=== PATIENT | female | born 1990 | race Caucasian/White ===

== ENCOUNTER 2017-01-02 22:56 | Emergency (ER) | payer OTHER ==
[2017-01-02 23:02] VITALS: TEMP 97.9; BMI 23.6
--- NOTE | 2017-01-02 23:34 | PDOC ---
History of Present Illness <Sudha Oneill - Last Filed: 01/03/17 00:42> <Ifrah Livingston - Last Filed: 01/09/17 00:42> - General Chief Complaint: Chest Pain Stated Complaint: CHEST PAIN Time Seen by Provider: 01/02/17 23:07 - History of Present Illness Initial Comments: 01/02/17 23:56 Patient is a 26 year old female with significant medical hx of anxiety who is presenting to the ED with several hours of constant chest pain and a few days of nasal congestion. The patient reports she was out to eat with her friend when she had a sudden onset of constant, non-radiating, centralized chest pain around 9:00 PM. She states that her chest pain started out as 8/10 in severity but has dropped to 6/10 since being in the ED. She characterizes her pain as a "pressure" that feels "heavy". It is not associated with any shortness of breath , diaphoresis, nausea, vomiting, fevers, chills, or headache. She also denies any belching or burning sensation. 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 She recently made a 12 hour car ride from [place] to come home to visit within the past week. The patient also suspects having some allergies from the dog. Surgical Hx: none Allergies: NKDA LNMP: 12/29/16 Social Hx: Denies tobacco use or alcohol use (Sudha Oneill) Past History <Sudha Oneill - Last Filed: 01/03/17 00:42> - Past Medical History Other medical history: anxiety - Immunization History Immunization Up to Date: Yes - Psycho/Social/Smoking Cessation Hx Suicidal Ideation: No Smoking History: Never smoked Information on smoking cessation initiated: No Hx Alcohol Use: No Drug/Substance Use Hx: No <Ifrah Livingston - Last Filed: 01/09/17 00:42> - Past Medical History Allergies/Adverse Reactions: Allergies Allergy/AdvReac Type Severity Reaction Status Date / Time No Known Allergies Allergy Verified 01/02/17 22:59 Home Medications: Ambulatory Orders Alprazolam [Xanax] 0.25 mg PO Q12H PRN 01/03/17 Review of Systems <Sudha Oneill - Last Filed: 01/03/17 00:42> <Ifrah Livingstonh - Last Filed: 01/09/17 00:42> - Review of Systems Comments:: 01/03/17 00:17 CONSTITUTIONAL: Absent: fever, chills, diaphoresis, generalized weakness, malaise, loss of appetite HEENT: Present: nasal congestion Absent: rhinorrhea, throat pain, throat swelling, difficulty swallowing, mouth swelling, ear pain, eye pain, visual changes CARDIOVASCULAR: Present: chest pain Absent: syncope, palpitations, irregular heart rate, lightheadedness, peripheral edema RESPIRATORY: Absent: cough, shortness of breath, dyspnea with exertion, orthopnea, wheezing, stridor, hemoptysis GASTROINTESTINAL: Absent: abdominal pain, abdominal distension, nausea, vomiting, diarrhea, constipation, melena, hematochezia GENITOURINARY: Absent: dysuria, frequency, urgency, hesitancy, hematuria, flank pain, genital pain MUSCULOSKELETAL: Absent: myalgia, arthralgia, joint swelling SKIN: Absent: rash, itching, pallor HEMATOLOGIC/IMMUNOLOGIC: Absent: easy bleeding, easy bruising, lymphadenopathy, frequent infections ENDOCRINE: Absent: unexplained weight gain, unexplained weight loss, heat intolerance, cold intolerance NEUROLOGIC: Absent: headache, focal weakness or paresthesia, dizziness, unsteady gait, seizure, mental status changes, bladder or bowel incontinence. PSYCHIATRIC: Absent: anxiety, depression, suicidal or homicidal ideation, hallucinations (Sudha Oneill) *Physical Exam <Sudha Oneill - Last Filed: 01/03/17 00:42> <Ifrah Livingston - Last Filed: 01/09/17 00:42> - Vital Signs Last Vital Signs Temp Pulse Resp BP Pulse Ox 97.9 F 66 16 109/66 98 01/02/17 22:59 01/03/17 02:41 01/03/17 02:41 01/03/17 02:41 01/03/17 02:41 - Physical Exam Comments: 01/03/17 00:17 GENERAL: Well developed, well nourished. Awake and alert. No acute distress. HEENT: Normocephalic, atraumatic. PERRLA, EOMI. No conjunctival pallor. Sclera are non- icteric. Moist mucous membranes. Oropharynx is clear. NECK: Supple. Full ROM. No JVD. Carotid pulses 2+ and symmetric, without bruits. No thyromegaly. No lymphadenopathy. CARDIOVASCULAR: Regular rate and rhythm. No murmurs, rubs, or gallops. Distal pulses are 2+ and symmetric. PULMONARY: No evidence of respiratory distress. Lungs clear to auscultation bilaterally. No wheezing, rales or rhonchi. ABDOMINAL: Soft. Non-tender. Non-distended. No rebound or guarding. No organomegaly. Normoactive bowel sounds. MUSCULOSKELETAL: Normal range of motion at all joints. No bony deformities or tenderness. No CVA tenderness. EXTREMITIES: No cyanosis. No clubbing. No edema. No calf tenderness. SKIN: Warm and dry. Normal capillary refill. No rashes. No jaundice. NEUROLOGICAL: Alert, awake, appropriate. Cranial nerves 2-12 intact. Normal speech. Gait is normal without ataxia. PSYCHIATRIC: Cooperative. Good eye contact. Appropriate mood and affect. (Sudha Oneill) Heart Score/ECG Review <Sudha Oneill - Last Filed: 01/03/17 00:42> <Ifrah Livingston - Last Filed: 01/09/17 00:42> #1 01/03/17 00:18 Normal sinus rhythm at 74 bpm Normal ECG (Sudha Oneill) ED Treatment Course - LABORATORY CBC & Chemistry Diagram: 01/02/17 23:42 01/02/17 23:45 <Sudha Oneill - Last Filed: 01/03/17 00:42> - LABORATORY CBC & Chemistry Diagram: 01/02/17 23:42 01/02/17 23:45 <Ifrah Livingston - Last Filed: 01/09/17 00:42> - ADDITIONAL ORDERS Additional order review: 01/02/17 23:42 RBC 3.88 MCV 81.2 MCHC 32.6 RDW 14.0 MPV 8.7 Neutrophils % 66.7 Lymphocytes % 19.9 Monocytes % 10.2 Eosinophils % 2.5 Basophils % 0.7 - RADIOLOGY Radiology Studies Ordered: Category Date Time Status CHEST CT WITH CONTRAST [CT] Stat CT Scan 01/03/17 00:40 Completed - Medications Given in the ED: ED Medications Discontinued Medications Generic Name Dose Route Start Last Admin Trade Name Freq PRN Reason Stop Dose Admin Al Hydroxide/Mg Hydroxide 30 ml 01/02/17 23:36 01/02/17 23:42 Mylanta Oral Suspension - PO 01/02/17 23:37 30 ml ONCE ONE Administration Aspirin 81 mg 01/02/17 23:36 01/02/17 23:42 Asa - PO 01/02/17 23:37 81 mg ONCE ONE Administration *DC/Admit/Observation/Transfer <Sudha Oneill - Last Filed: 01/03/17 00:42> <Ifrah Livingston - Last Filed: 01/09/17 00:42> Diagnosis at time of Disposition: Chest pain - Discharge Dispostion Disposition: HOME Condition at time of disposition: Stable - Referrals Referrals: Jenni Moran [Primary Care Provider] - - Patient Instructions Printed Discharge Instructions: DI for Chest Pain - Attestations Scribe Attestion: 01/03/17 00:18 Documentation prepared by Sudha Oneill, acting as medical laboratory technical officer for Ifrah Livingston MD. (Sudha Oneill)
[2017-01-02] MEDS ORDERED: MAG HYDROX/AL HYDROX/SIMETH 30 ML UNIT-DOSE CUP PO ONE (23:36)
[2017-01-02] MEDS ORDERED: ASPIRIN 81 MG CHEWABLE TABLETS PO ONE (23:36)
[2017-01-02] MEDS ORDERED: MAG HYDROX/AL HYDROX/SIMETH 30 ML UNIT-DOSE CUP ONE (23:40)
[2017-01-02] MEDS ORDERED: ASPIRIN 81 MG CHEWABLE TABLETS ONE (23:40)
[2017-01-02 23:56] LABS: BASOPHIL 0.7 % (0-2.0); EOSINOPHIL 2.5 % (0-4.5); MCH 26.5 pg (25.7-33.7); MCHC 32.6 g/dl (32.0-36.0); MEAN CELL VOLUME 81.2 fl (80-96); MEAN PLT VOLUME 8.7 fl (7.5-11.1); NEUTROPHILS 66.7 % (42.8-82.8); PLATELET COUNT 305 K/MM3 (134-434); WHITE BLOOD COUNT 9.4 K/mm3 (4.0-10.0)
[2017-01-03 00:21] LABS: INR 1.1 (0.82-1.09); PROTHROMBIN TIME (PATIENT) 12.1 SEC (9.98-11.88)
[2017-01-03 00:23] LABS: ALBUMIN 3.4 g/dl (3.4-5.0); ANION GAP 12 (8-16); BILIRUBIN,TOTAL 0.3 mg/dL (0.2-1.0); CALCIUM 8.2 mg/dL (8.5-10.1); CO2 23 mmol/L (21-32); CREATININE 0.7 mg/dL (0.55-1.02); GLUCOSE,RANDOM 110 mg/dL (74-106); SGOT/AST 12 U/L (15-37); SGPT/ALT 14 U/L (12-78); TOT PROT 6.6 g/dl (6.4-8.2)
[2017-01-03 00:26] LABS: ALK PHOS 90 U/L (45-117); TROPONIN I < 0.02 ng/ml (0.00-0.05)
[2017-01-03 02:41] VITALS: BP 109/66; PULSE 66
--- NOTE | 2017-01-03 02:52 | PDOC ---
*Physical Exam - Vital Signs Last Vital Signs Temp Pulse Resp BP Pulse Ox 97.9 F 66 16 109/66 98 01/02/17 22:59 01/03/17 02:41 01/03/17 02:41 01/03/17 02:41 01/03/17 02:41 ED Treatment Course - LABORATORY CBC & Chemistry Diagram: 01/02/17 23:42 01/02/17 23:45 - ADDITIONAL ORDERS Additional order review: Laboratory Results 01/02/17 01/02/17 01/02/17 23:45 23:45 23:42 INR 1.10 D-Dimer 616 H Sodium 143 Potassium 3.7 Chloride 108 H Carbon Dioxide 23 Anion Gap 12 BUN 7 Creatinine 0.7 Creat Clearance w eGFR > 60 Random Glucose 110 H Calcium 8.2 L Magnesium 2.0 Total Bilirubin 0.3 AST 12 L ALT 14 Alkaline Phosphatase 90 Creatine Kinase 80 Troponin I < 0.02 Total Protein 6.6 Albumin 3.4 Serum , Qual Negative 01/02/17 23:42 RBC 3.88 MCV 81.2 MCHC 32.6 RDW 14.0 MPV 8.7 Neutrophils % 66.7 Lymphocytes % 19.9 Monocytes % 10.2 Eosinophils % 2.5 Basophils % 0.7 - Medications Given in the ED: ED Medications Discontinued Medications Generic Name Dose Route Start Last Admin Trade Name Gersonq PRN Reason Stop Dose Admin Al Hydroxide/Mg Hydroxide 30 ml 01/02/17 23:36 01/02/17 23:42 Mylanta Oral Suspension - PO 01/02/17 23:37 30 ml ONCE ONE Administration Aspirin 81 mg 01/02/17 23:36 01/02/17 23:42 Asa - PO 01/02/17 23:37 81 mg ONCE ONE Administration Medical Decision Making - Medical Decision Making 01/03/17 03:03 Pt endorsed to me by Dr. Livingston at shift change. Awaiting CTA chest to r/o PE. CTA chest negative. Patient stable for DC home. *DC/Admit/Observation/Transfer Diagnosis at time of Disposition: Chest pain Qualifiers: Chest pain type: unspecified Qualified Code(s): R07.9 - Chest pain, unspecified - Discharge Dispostion Disposition: HOME Condition at time of disposition: Stable Admit: No - Referrals Referrals: Jenni Moran [Primary Care Provider] - - Patient Instructions Printed Discharge Instructions: DI for Chest Pain - Post Discharge Activity
--- NOTE | 2017-01-03 14:08 | EKG ---
Test Reason : Blood Pressure : / mmHG Vent. Rate : 074 BPM Atrial Rate : 074 BPM P-R Int : 142 ms QRS Dur : 092 ms QT Int : 384 ms P-R-T Axes : 033 063 035 degrees QTc Int : 426 ms NORMAL SINUS RHYTHM NORMAL ECG NO PREVIOUS ECGS AVAILABLE Confirmed by HANDY DOBBS MD ([id number]) on 01/03/2017 2:07:37 PM Referred By: Confirmed By:HANDY DOBBS MD
== END 2017-01-03 03:00 | disposition home or self-care (01) ==
LOC: JER 22:56
DX: R07.89 Other chest pain (principal)
CPT/HCPCS: 36415; 71260-TC; 80053; 82550; 83735; 84484; 84703; 85025; 85379; 85610; 93005; 93010; 99284-25

== ENCOUNTER 2021-11-14 02:38 | Emergency (ER) | payer OTHER ==
[2021-11-14] MEDS ORDERED: METOCLOPRAMIDE HCL 10 MG TABLET (FP) PO ONE (03:00)
[2021-11-14] MEDS ORDERED: LIDOCAINE 5% TOPICAL PATCH TP ONE (03:00)
[2021-11-14] MEDS ORDERED: ACETAMINOPHEN 500 MG TABLET (FP) PO ONE (03:01)
[2021-11-14 03:03] VITALS: BP 110/66; PULSE 88; TEMP 97; BMI 24.0
[2021-11-14] MEDS ORDERED: LIDOCAINE PATCH REMOVAL MC ONE (15:00)
== END 2021-11-14 04:12 | disposition home or self-care (01) ==
LOC: JER 02:38
DX: G44.209 Tension-type headache, unspecified, not intractable (principal)
CPT/HCPCS: 99283-25